=== PATIENT | female | born 1955 | race Caucasian/White ===

== ENCOUNTER 2021-08-25 19:56 | Emergency (ER) | payer MEDICAID ==
[~2021-08-25] VITALS: Ht 157.5 cm; Wt 73.0 kg
[2021-08-25] MEDS ORDERED: MORPHINE SULFATE 4 MG/ML CPJ (NOT FOR IM USE) IV ONE ×2 (21:30→23:15)
[2021-08-26] MEDS ORDERED: HYDR-4001 MT (00:57)
[2021-08-26 01:15] VITALS: BP 134/54
== END 2021-08-26 01:19 | disposition home or self-care (01) ==
LOC: ER 19:56
DX: S06.891A Other specified intracranial injury with loss of consciousness of 30 minutes or less, initial encounter (principal); S49.81XA Other specified injuries of right shoulder and upper arm, initial encounter; M25.521 Pain in right elbow; W10.8XXA Fall (on) (from) other stairs and steps, initial encounter; Y93.01 Activity, walking, marching and hiking; Y92.017 Garden or yard in single-family (private) house as the place of occurrence of the external cause
CPT/HCPCS: 70450; 72125; 73060; 96374; 96376; 99284; J2270; A4565